=== PATIENT | female | born 1985 | race Caucasian/White ===

== ENCOUNTER 2022-04-01 07:51 | Outpatient (CLI) | payer OTHER ==
--- NOTE | 2022-04-01 14:41 | Ultrasound Report ---
PROCEDURE: Pelvic w/Transvaginal INDICATIONS: LLQ ABD PAIN TECHNIQUE: Real-time scanning was performed of the pelvic organs, with image documentation. Additional endovagi nal scanning was necessary due to incomplete visualization of the adnexal and endometrial structures by transabdominal scanning. COMPARISON: None. FINDINGS: Uterus: Uterus is anteverted and normal in size at a 0.9 x 4.3 x 5.6 cm. The myometrium is homogene ous. The endometrium measures 7.1 mm in combined thickness. Intrauterine device is noted in its nor mal central endometrial location. No gross endometrial mass or fluid is seen. Small nabothian cysts a re noted along endocervical canal. Ovaries: The right ovary measures 3.8 x 2.4 x 2.8 cm, with a calculated ovarian volume of 12.95 cc. The left ovary measures 3.3 x 1.7 x 1.4 cm, with a calculated ovarian volume of 4.23 cc. The ovarie s have a normal sonographic appearance. Less than 12 follicles can be seen in each ovary. No adnexa l masses are seen. 1.6 x 1.3 x 1.5 cm anechoic area within right ovary is seen and show no internal v ascularity. Other: Small amount of free fluid is seen in posterior cul-de-sac. IMPRESSION: 1. No gross abnormality is seen in uterus and endometrium. Intrauterine device is noted in its normal endometrial location. 2. Small right ovarian cysts as above. No evidence of ovarian torsion. No gross solid appearing ovari an lesion. Reviewed by: Joesph Abraham MD on 04/01/2022 2:39 PM PDT Approved by: Joesph Abraham MD on 04/01/2022 2:39 PM PDT Station ID: [id number]
== END 2022-04-01 07:52 | disposition home or self-care (01) ==
LOC: DI 07:51
PROVIDERS: ATTEND Physician Assistant
DX: R10.32 Left lower quadrant pain (principal); N83.201 Unspecified ovarian cyst, right side; Z97.5 Presence of (intrauterine) contraceptive device

== ENCOUNTER 2023-03-09 15:11 | Outpatient (CLI) | payer OTHER ==
[2023-03-09 15:25] LABS: BASOPHILS # (AUTO) 0.1 10^3/uL (0.0-0.1); BASOPHILS % (AUTO) 0.9 %; EOSINOPHILS # (AUTO) 0.1 10^3/uL (0.0-0.7); EOSINOPHILS % (AUTO) 1.7 %; HCT - HEMATOCRIT 42.4 % (37.0-47.0); HGB - HEMOGLOBIN 14.1 g/dL (12.0-16.0); LYMPHOCYTES # (AUTO) 1.7 10^3/uL (1.5-3.5); LYMPHOCYTES % (AUTO) 26.3 %; MEAN CORPUSCULAR HEMOGLOBIN 30.7 pg (27.0-31.0); MEAN CORPUSCULAR HGB CONC 33.3 g/dL (32.0-36.0); MEAN CORPUSCULAR VOLUME 92.2 fL (81.0-99.0); MEAN PLATELET VOLUME 9.3 fL (7.9-10.8); MONOCYTES # (AUTO) 0.4 10^3/uL (0.0-1.0); MONOCYTES % (AUTO) 5.8 %; NEUTROPHILS # (AUTO) 4.3 10^3/uL (1.5-6.6); NEUTROPHILS % (AUTO) 65.1 %; PLT - PLATELET COUNT 278 10^3/uL (130-450); WHITE BLOOD COUNT 6.5 x10^3/uL (4.8-10.8)
[2023-03-09 15:54] LABS: ALBUMIN 4.7 g/dL (3.2-5.5); BILIRUBIN,TOTAL 0.4 mg/dL (0.2-1.0); CALCIUM 9.5 mg/dL (8.5-10.3); CREATININE 0.6 mg/dL (0.6-1.3); POTASSIUM 3.9 mmol/L (3.5-4.5)
[2023-03-09 15:55] LABS: THYROID STIMULATING HORMONE 5.11 uIU/mL (0.34-5.60)
[2023-03-10 18:07] LABS: THYROGLOBULIN ANTIBODY <1.0 IU/mL (0.0-0.9); THYROID PEROXIDASE (TPO) AB 39 IU/mL (0-34)
== END 2023-03-09 15:12 | disposition home or self-care (01) ==
LOC: LAB 15:11
PROVIDERS: ATTEND Nurse Practitioner Family
DX: E03.8 Other specified hypothyroidism (principal); R51.9 Headache, unspecified; R53.83 Other fatigue; E06.0 Acute thyroiditis
CPT/HCPCS: 36415; 80053; 84443; 85025; 86376; 86800

== ENCOUNTER 2023-06-18 08:00 | Outpatient (CLI) | payer OTHER | END 2023-06-18 23:58 | disposition home or self-care (01) | LOC: LAB.S 08:00 | PROVIDERS: ATTEND Emergency Medicine | DX: J06.9 Acute upper respiratory infection, unspecified (principal) | CPT/HCPCS: 87070 ==